=== PATIENT | male | born 1980 | race Caucasian/White ===

== ENCOUNTER 2016-11-24 08:21 | Emergency (ER) | payer BC ==
[~2016-11-24] VITALS: Ht 175.3 cm; Wt 127.3 kg
[2016-11-24 08:24] VITALS: TEMP 98.7
[2016-11-24] MEDS ORDERED: ZYRTEC 10MG10 MG PO (08:41)
[2016-11-24] MEDS ORDERED: ZANTAC 7575 MG PO (08:41)
[2016-11-24] MEDS ORDERED: PROAIR HFA0.09 MG/AC IH (08:42)
[2016-11-24 09:14] LABS: HEMOGLOBIN 16.4 g/dl (13.5-18.0); MEAN CELL VOLUME 92 fl (80.0-100.0); MEAN CORPUSCULAR HEMOGLOBIN 32 pg (27.0-31.0); MEAN CORPUSCULAR HGB CONC 35 g/dl (33.0-37.0); PLATELET COUNT 206 K/mm3 (130-400); RED BLOOD COUNT 5.11 M/mm3 (4.20-5.60); REDCELL DISTRIBUTION WIDTH-CV 12.2 % (11.5-14.5); WHITE BLOOD COUNT 11.1 K/mm3 (4.8-10.8)
[2016-11-24 09:16] LABS: ADD PATHOLOGY DIFF REVIEW NO
[2016-11-24 09:37] LABS: ADJUSTED CALCIUM 8.8 mg/dL (8.4-10.2); ALBUMIN 3.7 gm/dL (3.5-5.0); BILIRUBIN,TOTAL 1.4 mg/dL (0.0-1.0); C-REACTIVE PROTEIN 2.6 mg/dL (0.0-0.9); CALCIUM 8.6 mg/dL (8.4-10.2); CREATININE, serum 0.63 mg/dL (0.66-1.25); POTASSIUM 4.2 mmol/L (3.4-5.0); TOTAL PROTEIN 7.3 gm/dL (6.4-8.2)
[2016-11-24 09:51] LABS: BAND 10 % (0-10); EOSINOPHIL 2 % (0-4); NEUTROPHILS 54 % (42.0-75.2); PLATELET ESTIMATE NORMAL (NORMAL); TOTAL CELLS COUNTED 100
[2016-11-24] MEDS ORDERED: ZITHROMAX500 M2 PO (10:42)
[2016-11-24 10:53] VITALS: BP 134/101; PULSE 106
== END 2016-11-24 10:56 | disposition home or self-care (01) ==
LOC: COL.ER 08:21
PROVIDERS: Emergency Medicine
DX: J42 Unspecified chronic bronchitis (principal); E11.9 Type 2 diabetes mellitus without complications